=== PATIENT | female | born 2000 | race American Indian/Alaskan Native ===

== ENCOUNTER 2018-12-25 15:40 | Emergency (ER) | payer SELFPAY ==
[2018-12-25] MEDS ORDERED: DECADRON IM ONE (15:54)
[2018-12-25 15:55] VITALS: BP 115/67
[2018-12-25] MEDS ORDERED: IBUPROFEN PO ONE (15:55)
--- NOTE | 2018-12-25 15:58 | Emergency Department Report ---
Minor Respiratory - HPI Chief Complaint: Sore Throat Stated Complaint: POSS STREP THROAT Time Seen by Provider: 12/25/18 15:53 Duration: 2 Days Pain Location: Throat Severity: mild Minor Respiratory: Yes Sore Throat, Yes Able to Tolerate Fluids, Yes Fever, No Rhinorrhea, No Ear Pain, No Cough, No Sick Contacts, No Hemoptysis, No Chest Pain, No Shortness of Breath Other History: 18 year old with sore throat. taking po. ambulatory. non toxic. taking po. ED Review of Systems ROS: Stated complaint: POSS STREP THROAT Other details as noted in HPI Comment: All other systems reviewed and negative ED Past Medical Hx - Past Medical History Previous Medical History?: No - Surgical History Past Surgical History?: No - Social History Smoking Status: Never Smoker Substance Use Type: None - Medications Home Medications: Home Medications Medication Instructions Recorded Confirmed Last Taken Type Amoxicillin [Trimox CAP] 500 mg PO Q8H #30 capsule 12/25/18 Unknown Rx Minor Respiratory Exam - Exam General: Vital signs noted. No distress. Alert and acting appropriately. HEENT: Yes Pharyngeal Erythema, Yes Pharyngeal Exudates, Yes Moist Mucous Membranes, No Rhinorrhea, No Conjuctival Injection, No Frontal Tenderness, No Maxillary Tenderness Ear: Neither TM Bulge, Neither TM Erythema, Neither EAC Pain, Neither EAC Discharge Neck: Yes Supple, No Adenopathy Lungs: Yes Good Air Exchange, No Wheezes, No Ronchi, No Stridor Heart: Yes Regular, No Murmur Abdomen: No Tenderness Skin: No Rash Neurologic: Alert and oriented, no deficits. Musculoskeletal: Unremarkable. ED Course Vital Signs 12/25/18 15:54 Temperature 100.4 F H Pulse Rate 107 H Respiratory 16 Rate Blood Pressure 115/67 O2 Sat by Pulse 100 Oximetry ED Medical Decision Making - Medical Decision Making exudative pharyngitis decadron IM and motrin in ER taking PO HR 100 on repeat exam dc home on amox with family instructed on care- will see pcp on Friday to ensure getting better. - Differential Diagnosis simple urti Critical care attestation.: If time is entered above; I have spent that time in minutes in the direct care of this critically ill patient, excluding procedure time. ED Disposition Clinical Impression: Exudative pharyngitis Disposition: DC- TO HOME OR SELFCARE Is pt being admited?: No Does the pt Need Aspirin: No Condition: Stable Instructions: Pharyngitis (ED) Additional Instructions: drink a lot of water motrin and tylenol for pain and fever antibiotic as ordered today until gone follow up pcp next week referral below Prescriptions: Amoxicillin [Trimox CAP] 500 mg PO Q8H #30 capsule Referrals: [facility] [Outside] - 3-5 Days Time of Disposition: 15:56
== END 2018-12-25 16:18 | disposition home or self-care (01) ==
LOC: ED 15:40
DX: J02.9 Acute pharyngitis, unspecified (principal)
CPT/HCPCS: 96372; 99283; J1100